=== PATIENT | female | born 1955 ===

== ENCOUNTER 2017-05-14 12:13 | Observation (INO) | payer OTHER, SELFPAY ==
[2017-05-14 13:20] LABS: BASO # 0.1 K/uL (0.0-0.2); EOS # 0.2 K/uL (0.0-0.7); EOS % 1.8 % (0.0-4.0); HEMOGLOBIN 13.3 g/dL (12.0-16.0); LYMPH # 2.7 K/uL (1.0-4.3); LYMPH % 28.2 % (20.0-40.0); MEAN CELL VOLUME 84.8 fl (81.0-99.0); MEAN CORPUSCULAR HEMOGLOBIN 28.1 pg (27.0-31.0); MEAN CORPUSCULAR HGB CONC 33.1 g/dL (33.0-37.0); MONO # 0.7 K/uL (0.0-0.8); MONO % 6.8 % (0.0-10.0); NEUT # 5.9 K/uL (1.8-7.0); NEUT % 62.2 % (50.0-75.0); NRBC % 0.1 % (0.0-0.0); RBC 4.74 Mil/uL (3.80-5.20); RED CELL DISTRIBUTION WIDTH 13.5 % (11.5-14.5); WHITE BLOOD COUNT 9.5 K/uL (4.8-10.8)
[2017-05-14 13:29] LABS: ALB/GLOB RATIO 1.3 (1.0-2.1); ALBUMIN 4.5 g/dL (3.5-5.0); ALT/SGPT 21 U/L (9-52); AST/SGOT 32 U/L (14-36); BLOOD UREA NITROGEN 13 mg/dl (7-17); CALCIUM 8.9 mg/dL (8.4-10.2); GFR AFRICAN-AMERICAN > 60; GFR NON-AFRICAN AMERICAN > 60; LIPASE 151 U/L (23-300); MAGNESIUM 2.1 MG/DL (1.6-2.3)
[2017-05-14 13:40] LABS: B-TYPE NATRIURETIC PEPTIDE 133 pg/ml (0-900)
--- NOTE | 2017-05-14 13:40 | ED PDOC ---
HPI: Chest Pain Time Seen by Provider: 05/14/17 12:31 Chief Complaint (Nursing): Chest Pain History Per: Patient History/Exam Limitations: no limitations Onset/Duration Of Symptoms: Gradual (yesterday) Severity: Mild Front/Back of Body, Lg (Color): 1 - substernal Quality: Dull Associated Symptoms: Nausea, Dyspnea. denies: Diaphoresis, Syncope Modifying Factors: None Exacerbating Factors: None Alleviating Factors: None Additional History Per: Patient Additional Complaint(s): c/o mid chest pain since yesterday with shortness of breath. pt denies cough and fever. 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 [id number] Past Medical History Reviewed: Historical Data, Nursing Documentation, Vital Signs Vital Signs: Last Vital Signs Temp 98 F 05/14/17 12:20 Pulse 60 05/14/17 12:35 Resp 21 05/14/17 12:20 BP 137/64 05/14/17 12:35 Pulse Ox 100 05/14/17 13:42 - Medical History PMH: HTN - Family History Family History: States: Unknown Family Hx - Living Arrangements Living Arrangements: With Family - Social History Current smoker - smoking cessation education provided: No - Home Medications Home Medications: Ambulatory Orders Medication Instructions Recorded Jolon-3 Fatty Acids/Fish Oil 1 cap PO DAILY 05/14/17 [Jolon-3 1,000 mg Softgel] - Allergies Allergies/Adverse Reactions: Allergies Allergy/AdvReac Type Severity Reaction Status Date / Time No Known Allergies Allergy Verified 05/14/17 12:19 ISAAC Risk Score for UA/NSTEMI - ISAAC Risk Score Age > 64: NO 3 or more CAD Risk Factors: NO Known CAD (Stenosis greater than 50%): NO Aspirin use in past 7 days: NO Severe Angina: NO EKG ST changes greater than 0.5mm: NO Positive Cardiac Marker: NO ISAAC Score: 0 Risk %: 5% Wells Criteria for PE - Wells Criteria for Pulmonary Embolism Clinical Signs and Symptoms of DVT: No P.E is #1 Diagnosis, or Equally Likely: No Heart Rate >100: No Immobilization at least 3 days;Surgery previous 4 weeks: No Previous, objectively diagnosed PE or DVT: No Hemoptysis: No Malignancy w/treatment within 6 months, or palliative: No Total Score: 0 Review of Systems ROS Statement: Except As Marked, All Systems Reviewed And Found Negative Constitutional: Negative for: Fever, Chills Cardiovascular: Positive for: Chest Pain. Negative for: Palpitations Respiratory: Negative for: Cough, Shortness of Breath Gastrointestinal: Negative for: Nausea, Vomiting, Abdominal Pain Neurological: Negative for: Weakness, Numbness Physical Exam - Reviewed Nursing Documentation Reviewed: Yes Vital Signs Reviewed: Yes - Physical Exam Appears: Positive for: Well, Uncomfortable Head Exam: Positive for: ATRAUMATIC, NORMAL INSPECTION, NORMOCEPHALIC Eye Exam: Positive for: Normal appearance, EOMI, PERRL Neck: Positive for: Normal, Painless ROM, Supple Cardiovascular/Chest: Positive for: Regular Rate, Rhythm, Chest Non Tender. Negative for: Edema, Gallop Respiratory: Positive for: Normal Breath Sounds. Negative for: Decreased Breath Sounds, Accessory Muscle Use, Crackles, Rales, Rhonchi, Stridor, Wheezing Pulses-Radial (L): 2+ Pulses-Radial (R): 2+ Gastrointestinal/Abdominal: Positive for: Normal Exam, Bowel Sounds, Soft. Negative for: Tenderness Back: Positive for: Normal Inspection. Negative for: L CVA Tenderness, R CVA Tenderness Extremity: Positive for: Normal ROM. 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 Negative for: Motor/Sensory Deficits - Laboratory Results Result Diagrams: 05/14/17 13:05 05/14/17 13:05 - ECG ECG: Positive for: Interpreted By Wa ECG Rhythm: Positive for: Normal QRS, Normal ST Segment, Sinus Rhythm. Negative for: ST/T Changes Interpretation Of Abn EKG: rate of 68, no evidence of ischemia O2 Sat by Pulse Oximetry: 100 Pulse Ox Interpretation: Normal - Radiology X-Ray: Interpreted by Me X-Ray Interpretation: No Acute Disease - Progress ED Course And Treament: no cp now Re-evaluation Time: 13:00 (1) Condition: Improved Disposition - Clinical Impression Clinical Impression: Chest pain - Patient ED Disposition Is Patient to be Admitted: Yes Counseled Patient/Family Regarding: Studies Performed, Diagnosis - Disposition Disposition Time: 13:19 Condition: STABLE - Pt Status Changed To: Hospital Disposition Of: Observation
[2017-05-14 13:50] LABS: PARTIAL THROMBOPLASTIN TIME 31.4 Seconds (25.6-37.1); PROTHROMBIN TIME 11.8 Seconds (9.8-13.1)
[2017-05-14] MEDS ORDERED: Potassium Chloride 20 mEq ER Tab PO ONE ×2 (14:34→15:10)
--- NOTE | 2017-05-14 15:55 | CP.PCM.HP ---
History of Present Illness - History of Present Illness History of Present Illness: 61 yr old F with PMHx including HTN and HLD presented to ED with complaint of chest pain and b/l LE numbness that began at 9am while she was standing folding pants at work. Patient reports the chest pain was in the middle of her chest, "pressure like", 4/10, felt like someone was squeezing her chest and she couldn' t breathe, pain does not radiate. She had associated palpitations, began sweating and had blurry vision at that time. She sat in a chair at work and her symptoms improved mildly, she called and cab and came to the ED. Denies nausea, vomiting, fever, chills, LOC, head trauma, pain or numbness of extremities. Denies any prior episode of chest pain. At baseline she can walk many miles and up and down stairs without any SOB or difficulty. She reports she is in alot of stress at home as she and her daughter have taken out > $7,000 in loans from a friend whom is now constantly asking them to pay back GREGORY. PMD: Dr. 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, lives with daughter/son and 2 grandchildren Medications: Hydrochlorothiazide 25mg PO QD Allergies: NKDA ED Course -VSS : BP 137/64 mmHg, HR 60, RespR 21, Temp 98 F, Pulse Ox 100% -EKG: NSR -CBC: wnl, coags wnl, D-dimer 196, Lipase 151, ProBnp 133 -CMP: K 3.4, rest wnl -CXR: official report pending -my interpretation (no active pulmonary disease, unchanged compared to prior CXR of 07/01/2009) -ED tx: ASA 325mg PO stat Present on Admission - Present on Admission Any Indicators Present on Admission: No History of DVT/PE: No History of Uncontrolled Diabetes: No Urinary Catheter: No Decubitus Ulcer Present: No Review of Systems - Review of Systems All systems: reviewed and no additional remarkable complaints except (for what is mentioned in the HPI) Past Patient History - Past Social History Smoking Status: Never Smoked - CARDIAC Hx Hypertension: Yes - PSYCHIATRIC Hx Substance Use: No - SURGICAL HISTORY Hx Section: Yes - ANESTHESIA Hx Anesthesia: Yes Hx Anesthesia Reactions: No Meds Allergies/Adverse Reactions: Allergies Allergy/AdvReac Type Severity Reaction Status Date / Time No Known Allergies Allergy Verified 05/14/17 12:19 Physical Exam - Constitutional Appears: Non-toxic, No Acute Distress - Head Exam Head Exam: ATRAUMATIC, NORMOCEPHALIC - Eye Exam Eye Exam: EOMI, PERRL - ENT Exam ENT Exam: Mucous Membranes Moist - Neck Exam Neck exam: Positive for: Full Rom. Negative for: Lymphadenopathy - Respiratory Exam Respiratory Exam: Clear to Auscultation Bilateral, NORMAL BREATHING PATTERN - Cardiovascular Exam Cardiovascular Exam: REGULAR RHYTHM, +S1, +S2. absent: JVD - GI/Abdominal Exam GI & Abdominal Exam: Normal Bowel Sounds, Soft (obese). absent: Tenderness - Extremities Exam Extremities exam: Positive for: full ROM (strength 5/5 in bilateral upper and lower extremities), normal capillary refill, pedal pulses present. Negative for : calf tenderness, pedal edema - Back Exam Back exam: absent: CVA tenderness (L), CVA tenderness (R) - Neurological Exam Neurological exam: Alert, CN II-XII Intact, Oriented x3 - Psychiatric Exam Psychiatric exam: Normal Affect, Normal Mood - Skin Skin Exam: Dry, Intact, Normal Color, Warm Results - Vital Signs Recent Vital Signs: Last Vital Signs Temp 98.1 F 05/14/17 15:02 Pulse 79 05/14/17 15:02 Resp 16 05/14/17 15:02 BP 142/86 05/14/17 15:02 Pulse Ox 99 05/14/17 15:02 - Labs Result Diagrams: 05/14/17 13:05 05/14/17 13:05 Assessment & Plan - Assessment and Plan (Free Text) Assessment: 61 yr old F admitted for chest pain with PMH of HTN and HLD, not taking medication. EKG showed NSR, CXR no active disease, troponin negative x 1. Patient hemodynamically stable , will be admitted to telemetry for further management. Chest Pain -acute, stable -EKG: NSR -Troponin negative x 1 -CXR: no active disease (official report pending) -ASA 81mg PO daily -f/u serial troponins -f/u repeat EKG in AM -admit to tele for futher management Hypokalemia -K 3.4 -K-Dur 20 Meq PO daily -f/u CMP HTN -controlled, chronic -continue home med: HCTZ 25mg PO QD -monitor BP -heart healthy diet -f/u CBC HLD -controlled, chronic -continue home med: Lovaza 1gm PO QD -f/u Lipid panel DVT -Lovenox 40mg SC QD -SCD's - Date & Time Date: 05/14/17 Time: 14:35
[2017-05-14] MEDS: Omega-3-Acid Ethyl Esters 1 GM Cap PO SCH (17:06)
--- NOTE | 2017-05-14 18:31 | RAD ---
HISTORY: cp COMPARISON: Chest x-ray performed 07/01/09 TECHNIQUE: Chest, one view. FINDINGS: LUNGS: No focal consolidation. Please note that chest x-ray has limited sensitivity for the detection of pulmonary masses. PLEURA: No significant pleural effusion identified. No definite pneumothorax . CARDIOVASCULAR: Heart size appears within normal limits. OSSEOUS STRUCTURES: Degenerative changes of the spine. VISUALIZED UPPER ABDOMEN: Unremarkable. OTHER FINDINGS: 17 x 27 mm ovoid calcific or ossific density projects over the medial right upper lobe, grossly stable since 2008. IMPRESSION: No acute findings. 17 x 27 mm ovoid calcific or ossific density projects over the medial right upper lobe, grossly stable since 2008. Outpatient CT of the chest may be considered if indicated. Study has been marked for PA review.
[2017-05-15 05:13] VITALS: O2SAT 98
[2017-05-15 06:28] LABS: HEMOGLOBIN 13.4 g/dL (12.0-16.0); MEAN CELL VOLUME 84.8 fl (81.0-99.0); MEAN CORPUSCULAR HEMOGLOBIN 27.9 pg (27.0-31.0); MEAN CORPUSCULAR HGB CONC 32.9 g/dL (33.0-37.0); RBC 4.81 Mil/uL (3.80-5.20); RED CELL DISTRIBUTION WIDTH 13.4 % (11.5-14.5); WHITE BLOOD COUNT 7.4 K/uL (4.8-10.8)
[2017-05-15 06:33] LABS: ALB/GLOB RATIO 1.3 (1.0-2.1); ALT/SGPT 27 U/L (9-52); AST/SGOT 28 U/L (14-36); BLOOD UREA NITROGEN 12 mg/dl (7-17); CALCIUM 8.9 mg/dL (8.4-10.2); GFR AFRICAN-AMERICAN > 60; GFR NON-AFRICAN AMERICAN > 60
[2017-05-15 08:14] VITALS: PULSE 61; RESP 18; TEMP 97.9
--- NOTE | 2017-05-15 08:38 | CP.PCM.DIS ---
Provider - Provider Date of Admission: 05/14/17 13:58 Attending physician: Nata Mendosa MD Primary care physician: Dr. Archer-[facility] Time Spent in preparation of Discharge (in minutes): 30 Diagnosis - Discharge Diagnosis (1) Chest pain Status: Acute Priority: Low Comment: ACS ruled out Hospital Course - Lab Results Lab Results: Most Recent Lab Values WBC 7.4 K/uL (4.8-10.8) 05/15/17 05:00 RBC 4.81 Mil/uL (3.80-5.20) 05/15/17 05:00 Hgb 13.4 g/dL (12.0-16.0) 05/15/17 05:00 Hct 40.8 % (34.0-47.0) 05/15/17 05:00 MCV 84.8 fl (81.0-99.0) 05/15/17 05:00 MCH 27.9 pg (27.0-31.0) 05/15/17 05:00 MCHC 32.9 g/dL (33.0-37.0) L 05/15/17 05:00 RDW 13.4 % (11.5-14.5) 05/15/17 05:00 Plt Count 216 K/uL (130-400) 05/15/17 05:00 MPV 10.0 fl (7.2-11.7) 05/14/17 13:05 Neut % (Auto) 62.2 % (50.0-75.0) 05/14/17 13:05 Lymph % (Auto) 28.2 % (20.0-40.0) 05/14/17 13:05 [place] % (Auto) 6.8 % (0.0-10.0) 05/14/17 13:05 Eos % (Auto) 1.8 % (0.0-4.0) 05/14/17 13:05 Baso % (Auto) 1.0 % (0.0-2.0) 05/14/17 13:05 Neut # 5.9 K/uL (1.8-7.0) 05/14/17 13:05 Lymph # 2.7 K/uL (1.0-4.3) 05/14/17 13:05 [place] # 0.7 K/uL (0.0-0.8) 05/14/17 13:05 Eos # 0.2 K/uL (0.0-0.7) 05/14/17 13:05 Baso # 0.1 K/uL (0.0-0.2) 05/14/17 13:05 PT 11.8 Seconds (9.8-13.1) 05/14/17 13:05 INR 1.0 (0.9-1.2) 05/14/17 13:05 APTT 31.4 Seconds (25.6-37.1) 05/14/17 13:05 D-Dimer, Quantitative 196 ng/mlDDU (0-230) 05/14/17 13:05 Sodium 142 mmol/l (132-148) 05/15/17 05:00 Potassium 4.2 MMOL/L (3.6-5.0) 05/15/17 05:00 Chloride 108 mmol/L (98-107) H 05/15/17 05:00 Carbon Dioxide 25 mmol/L (22-30) 05/15/17 05:00 Anion Gap 13 (10-20) 05/15/17 05:00 BUN 12 mg/dl (7-17) 05/15/17 05:00 Creatinine 0.7 mg/dL (0.7-1.2) 05/15/17 05:00 Est GFR ( Amer) > 60 05/15/17 05:00 Est GFR (Non-Af Amer) > 60 05/15/17 05:00 Random Glucose 103 mg/dL (65-105) 05/15/17 05:00 Calcium 8.9 mg/dL (8.4-10.2) 05/15/17 05:00 Magnesium 2.1 MG/DL (1.6-2.3) 05/14/17 13:05 Total Bilirubin 0.5 mg/dl (0.2-1.3) 05/15/17 05:00 AST 28 U/L (14-36) 05/15/17 05:00 ALT 27 U/L (9-52) 05/15/17 05:00 Alkaline Phosphatase 87 U/L (38-126) 05/15/17 05:00 Troponin I < 0.0120 ng/mL (0.00-0.120) 05/14/17 21:11 NT-Pro-B Natriuret Pep 133 pg/ml (0-900) 05/14/17 13:05 Total Protein 7.1 G/DL (6.3-8.2) 05/15/17 05:00 Albumin 4.0 g/dL (3.5-5.0) 05/15/17 05:00 Globulin 3.1 gm/dL (2.2-3.9) 05/15/17 05:00 Albumin/Globulin Ratio 1.3 (1.0-2.1) 05/15/17 05:00 Lipase 151 U/L (23-300) 05/14/17 13:05 - Hospital Course Hospital Course: 61 yr old F admitted for chest pain, EKG resulted NSR, serial troponins were negative x 2, chest pain resolved, ACS was ruled out. Patient remained stable and was discharged with instructions to take Hydrochlorothiazide 25mg PO QD, resume the rest of your home meds, follow up at [facility] with Dr. Santiago on 05/21/17 9: 15am, follow up with Silviano Holm (dental billing specialist). - Date & Time of H&P Date of H&P: 05/14/17 Time of H&P: 15:22 Discharge Exam - Head Exam Head Exam: ATRAUMATIC, NORMOCEPHALIC - Eye Exam Eye Exam: EOMI - ENT Exam ENT Exam: Mucous Membranes Moist - Neck Exam Neck exam: Full Rom - Respiratory Exam Respiratory Exam: Clear to PA & Lateral, NORMAL BREATHING PATTERN - Cardiovascular Exam Cardiovascular Exam: REGULAR RHYTHM, +S1, +S2 - GI/Abdominal Exam GI & Abdominal Exam: Normal Bowel Sounds, Soft. absent: Tenderness - Extremities Exam Extremities exam: full ROM - Back Exam Back exam: absent: CVA tenderness (L), CVA tenderness (R) - Neurological Exam Neurological exam: Alert, CN II-XII Intact, Oriented x3 - Psychiatric Exam Psychiatric exam: Normal Affect, Normal Mood - Skin Skin Exam: Dry, Intact, Warm Discharge Plan - Discharge Medications Prescriptions: hydroCHLOROthiazide [Hydrodiuril] 25 mg PO DAILY #30 tab - Follow Up Plan Condition: STABLE Disposition: HOME/ ROUTINE Instructions: Noncardiac Chest Pain (DC) Additional Instructions: -Take Hydrochlorothiazide 25mg PO QD -Resume the rest of your home meds -Follow up at [facility] with Dr. Santiago on 05/21/17 9:15am Referrals: Tra Santiago MD [Resident] -
[2017-05-15] MEDS: Omega-3-Acid Ethyl Esters 1 GM Cap PO SCH (08:41)
[2017-05-15] MEDS ORDERED: OMEGA PO SCH (09:00)
[2017-05-15] MEDS ORDERED: Potassium Chloride 20 mEq ER Tab PO SCH (09:00)
[2017-05-15] MEDS ORDERED: Enoxaparin 40 mg Syringe SC SCH (09:00)
[2017-05-15] MEDS ORDERED: FISH OIL PO SCH (09:00)
[2017-05-15] MEDS ORDERED: FATTY ACIDS PO SCH (09:00)
--- NOTE | 2017-05-15 10:17 | CARD ---
APPROVED REPORT EKG Measurement Heart [id number] FL 134P35 [id number] <Conclusion> Normal sinus rhythm Normal ECG
[2017-05-15 11:27] VITALS: BP 132/86
== END 2017-05-15 12:20 | disposition home or self-care (01) ==
LOC: H.ER 12:13 → H.ERHOLD 13:58 → H.TEL 16:03
PROVIDERS: ADMIT Family Medicine Geriatric Medicine; ATTEND Family Medicine Geriatric Medicine
DX: R07.89 Other chest pain (principal); E87.6 Hypokalemia; I10 Essential (primary) hypertension; E78.5 Hyperlipidemia, unspecified; Z91.14 Patient's other noncompliance with medication regimen

== ENCOUNTER 2017-06-04 09:43 | Emergency (ER) | payer SELFPAY ==
[2017-06-04 09:57] VITALS: BMI 21.0
--- NOTE | 2017-06-04 10:16 | CT ---
PROCEDURE: CT HEAD WITHOUT CONTRAST. HISTORY: code stroke AMS COMPARISON: None available. TECHNIQUE: Axial computed tomography images were obtained through the head/brain without intravenous contrast. Radiation dose: Total exam DLP = 1073.37 mGy-cm. This CT exam was performed using one or more of the following dose reduction techniques: Automated exposure control, adjustment of the mA and/or kV according to patient size, and/or use of iterative reconstruction technique. FINDINGS: HEMORRHAGE: No intracranial hemorrhage. BRAIN: No mass effect or edema. No atrophy or chronic microvascular ischemic changes. VENTRICLES: Unremarkable. No hydrocephalus. CALVARIUM: Unremarkable. PARANASAL SINUSES: Unremarkable as visualized. No significant inflammatory changes. MASTOID AIR CELLS: Unremarkable as visualized. No inflammatory changes. OTHER FINDINGS: None. IMPRESSION: No evidence of acute intracranial hemorrhage mass effect or midline shift. Acute ischemic changes may not be seen in the CT. Follow-up reassessment by CT or MRI may be obtained if clinically warranted.
[2017-06-04 10:23] LABS: BASO # 0.1 K/uL (0.0-0.2); BASO % 0.7 % (0.0-2.0); EOS # 0.1 K/uL (0.0-0.7); EOS % 1.3 % (0.0-4.0); HEMOGLOBIN 13.9 g/dL (12.0-16.0); LYMPH # 2.6 K/uL (1.0-4.3); MEAN CELL VOLUME 83.8 fl (81.0-99.0); MEAN CORPUSCULAR HEMOGLOBIN 27.7 pg (27.0-31.0); MEAN PLATELET VOLUME 9.9 fl (7.2-11.7); MONO # 0.6 K/uL (0.0-0.8); MONO % 7.7 % (0.0-10.0); NEUT # 4.8 K/uL (1.8-7.0); NEUT % 58.3 % (50.0-75.0); NRBC % 0.1 % (0.0-0.0); RBC 5.02 Mil/uL (3.80-5.20); RED CELL DISTRIBUTION WIDTH 13.9 % (11.5-14.5); WHITE BLOOD COUNT 8.3 K/uL (4.8-10.8)
[2017-06-04 10:33] LABS: ALB/GLOB RATIO 1.3 (1.0-2.1); ALBUMIN 4.5 g/dL (3.5-5.0); ALT/SGPT 31 U/L (9-52); AST/SGOT 30 U/L (14-36); BLOOD UREA NITROGEN 13 mg/dl (7-17); CALCIUM 9.6 mg/dL (8.4-10.2); GFR AFRICAN-AMERICAN > 60; GFR NON-AFRICAN AMERICAN > 60; HDL CHOLESTEROL 62 MG/DL (30-70)
[2017-06-04 10:43] LABS: LDL CHOLESTEROL 123 mg/dL (0-129)
[2017-06-04 10:46] LABS: INR 1.2 (0.9-1.2); PROTHROMBIN TIME 11.9 Seconds (9.8-13.1)
[2017-06-04 10:48] VITALS: O2SAT 98
[2017-06-04] MEDS ORDERED: Potassium Chloride 20 mEq ER Tab PO STA (10:54)
--- NOTE | 2017-06-04 12:39 | RAD ---
HISTORY: Shortness of breath. Portable study 10:21. COMPARISON: 05/14/2017. FINDINGS: LUNGS: No active pulmonary disease. PLEURA: No significant pleural effusion identified, no pneumothorax apparent. CARDIOVASCULAR: No radiographic findings to suggest acute or significant cardiovascular disease. OSSEOUS STRUCTURES: No significant abnormalities. VISUALIZED UPPER ABDOMEN: Normal. OTHER FINDINGS: None. IMPRESSION: No active disease. No significant interval change compared to the prior examination(s). Concordant results with the preliminary interpretation rendered by the emergency department physician procedure.
--- NOTE | 2017-06-04 16:05 | ED PDOC ---
HPI: Neurologic - General Time Seen by Provider: 06/04/17 09:51 Chief Complaint (Nursing): Anxiety Chief Complaint (Provider): Anxiety Source: patient Exam Limitations: no limitations - History of Present Illness Timing/Duration: 4-6 hours (morning prior to arrival ) Allergies/Adverse Reactions: Allergies No Known Allergies Allergy (Verified 06/04/17 09:57) Home Medications: Ambulatory Orders [place]-3 Fatty Acids/Fish Oil [[place]-3 1,000 mg Softgel] 1 cap PO DAILY 05/14/17 hydroCHLOROthiazide [Hydrodiuril] 25 mg PO DAILY #30 tab 05/15/17 Additional Complaint(s): Hillary Rahman is a 61 year old female with a past medical history of hypertension and anxiety presenting to the ED for an evaluation of feeling anxious and numbness noted to bilateral hands, legs, and mouth beginning this morning prior to arrival. The patient reports she felt her blood pressure to be elevated so she took a hydrochlorothiazide. Her doctor told her to stop taking her blood pressure medication because she no longer needs it. She also reports taking an Aspirin every day. She denies any history of diabetes. PMD: None Provided Past Medical History Reviewed: Historical Data, Nursing Documentation, Vital Signs Vital Signs: Last Vital Signs Temp Pulse 67 06/04/17 12:19 Resp 18 06/04/17 12:19 BP 124/69 06/04/17 12:19 Pulse Ox 98 06/04/17 12:19 - Medical History PMH: HTN Denies: HIV, Chronic Kidney Disease - Surgical History Surgical History: No Surg Hx - Family History Family History: States: Unknown Family Hx - Social History Current smoker - smoking cessation education provided: No Ex-Smoker (has not smoked in the last 12 months): No - Home Medications Home Medications: Ambulatory Orders Medication Instructions Recorded [place]-3 Fatty Acids/Fish Oil 1 cap PO DAILY 05/14/17 [[place]-3 1,000 mg Softgel] hydroCHLOROthiazide [Hydrodiuril] 25 mg PO DAILY #30 tab 05/15/17 - Allergies Allergies/Adverse Reactions: Allergies Allergy/AdvReac Type Severity Reaction Status Date / Time No Known Allergies Allergy Verified 06/04/17 09:57 Review of Systems ROS Statement: Except As Marked, All Systems Reviewed And Found Negative Neurological: Positive for: Numbness, Dizziness Psych: Positive for: Anxiety Physical Exam - Reviewed Nursing Documentation Reviewed: Yes Vital Signs Reviewed: Yes - Physical Exam Appears: Positive for: Well (anxious and tearful ), Non-toxic, No Acute Distress Head Exam: Positive for: ATRAUMATIC, NORMAL INSPECTION, NORMOCEPHALIC Skin: Positive for: Normal Color, Warm, DRY Eye Exam: Positive for: EOMI, Normal appearance, PERRL ENT: Positive for: Normal ENT Inspection Neck: Positive for: Normal, Painless ROM Cardiovascular/Chest: Positive for: Regular Rate, Rhythm Respiratory: Positive for: CNT, Normal Breath Sounds Gastrointestinal/Abdominal: Positive for: Normal Exam, Bowel Sounds, Soft Back: Positive for: Normal Inspection Extremity: Positive for: Normal ROM Neurologic/Psych: Positive for: Alert, chief nurse executive II-XII (intact ), Oriented, Other (5/ 5 strength bilaterally ). Negative for: Motor/Sensory Deficits, Facial Droop ( no facial weakness) - Laboratory Results Result Diagrams: 06/04/17 10:18 06/04/17 17:00 - ECG ECG Rhythm: Positive for: Sinus Bradycardia. Negative for: ST/T Changes Rate: 58 O2 Sat by Pulse Oximetry: 98 (RA) Pulse Ox Interpretation: Normal Medical Decision Making Medical Decision Makin:51 Impression: Anxiety and numbness Plan: * Type and screen * ED EKG * Labs * Blood Work * Glucose, Blood, POC * Chest X-ray * CT head * Ativan 1 mg * K-Dur 20 mEq ER Tab PO * Reevaluation Triage nurse called code stroke according to protocol however unlikely to be acute cerebral ischemia due to clinical history and exam. Relieved with 1 mg Ativan ordered for anxiety. Blood work showed mild hypokalemia which was replaced. Chest X-Ray: FINDINGS: LUNGS: No active pulmonary disease. PLEURA: No significant pleural effusion identified, no pneumothorax apparent. CARDIOVASCULAR: No radiographic findings to suggest acute or significant cardiovascular disease. OSSEOUS STRUCTURES: No significant abnormalities. VISUALIZED UPPER ABDOMEN: Normal. OTHER FINDINGS: None. IMPRESSION: No active disease. No significant interval change compared to the prior examination(s). Head CT FINDINGS: HEMORRHAGE: No intracranial hemorrhage. BRAIN: No mass effect or edema. No atrophy or chronic microvascular ischemic changes. VENTRICLES: Unremarkable. No hydrocephalus. CALVARIUM: Unremarkable. PARANASAL SINUSES: Unremarkable as visualized. No significant inflammatory changes. MASTOID AIR CELLS: Unremarkable as visualized. No inflammatory changes. OTHER FINDINGS: None. IMPRESSION: No evidence of acute intracranial hemorrhage mass effect or midline shift. Acute ischemic changes may not be seen in the CT. Follow-up reassessment by CT or MRI may be obtained if clinically warranted. trop repeated and neg x2 potassium replaced, repeated and normal Monitored in ED 6+ hrs without return of symptoms. Given symptoms bilateral, patient believes "related to stress", recent admission for chest pain possibly related to anxiety, improvement / resolution w ativan- unlikely to be acute cerebral ischemia. DC home followup clinic for BP management. Continue ASA. Scribe Attestation: Documented by Ashlyn Brown, acting as a scribe for Omer Mendez DO. Provider Scribe Attestation: All medical record entries made by the Scribe were at my direction and personally dictated by me. I have reviewed the chart and agree that the record accurately reflects my personal performance of the history, physical exam, medical decision making, and the department course for this patient. I have also personally directed, reviewed, and agree with the discharge instructions and disposition. Disposition - Clinical Impression Clinical Impression: Anxiety - Patient ED Disposition Is Patient to be Admitted: No Counseled Patient/Family Regarding: Studies Performed, Diagnosis, Need For Followup - Disposition Referrals: [facility] [Outside] Disposition: Routine/Home Disposition Time: 13:00 Condition: STABLE Additional Instructions: Continue any medications as prior prescribed. Return to ER for any return of, or new, symptoms. Instructions: Paresthesia (ED), Anxiety (ED), Panic Attack (ED) Forms: [email or web address] (Occitan) Print Language: KAZAKH
--- NOTE | 2017-06-04 16:35 | CARD ---
APPROVED REPORT EKG Measurement Heart [id number] FL 126P35 [id number] <Conclusion> Sinus bradycardia Otherwise normal ECG
[2017-06-04 18:32] VITALS: BP 126/78; RESP 19; TEMP 97.6
[2017-06-05 13:39] VITALS: PULSE 58
== END 2017-06-04 18:32 | disposition home or self-care (01) ==
LOC: H.ER 09:43
DX: F41.9 Anxiety disorder, unspecified (principal); I10 Essential (primary) hypertension

== ENCOUNTER 2017-08-09 09:40 | Emergency (ER) | payer SELFPAY ==
[2017-08-09 09:44] VITALS: BMI 34.0
[2017-08-09 09:45] VITALS: BP 136/65; PULSE 68; RESP 18; TEMP 98.5; O2SAT 98
--- NOTE | 2017-08-09 10:08 | ED PDOC ---
Upper Extremity Pain/Injury Time Seen by Provider: 08/09/17 10:07 Chief Complaint (Nursing): Upper Extremity Problem/Injury Chief Complaint (Provider): right arm pain History Per: Patient Additional Complaint(s): [id number] female presents to emergency Department with pain to right shoulder that radiates down the right arm times one week. Patient does not recall any injury or trauma. She took Aleve the other day which did help somewhat with pain. No associated chest pain, shortness of breath or dyspnea on exertion. His current pain is 6 out of 10 and patient did not take anything for pain today. PMD: [facility] Past Medical History Reviewed: Historical Data, Nursing Documentation, Vital Signs Vital Signs: Last Vital Signs Temp 98.5 F 08/09/17 09:44 Pulse 68 08/09/17 09:44 Resp 18 08/09/17 09:44 BP 136/65 08/09/17 09:44 Pulse Ox 98 08/09/17 09:44 - Medical History PMH: HTN, Hypercholesterolemia - Surgical History Surgical History: (x 1) - Family History Family History: States: No Known Family Hx - Living Arrangements Living Arrangements: With Family - Social History Current smoker - smoking cessation education provided: No Alcohol: None Drugs: Denies - Home Medications Home Medications: Ambulatory Orders Medication Instructions Recorded Jerusalem-3 Fatty Acids/Fish Oil 1 cap PO DAILY 05/14/17 [Jerusalem-3 1,000 mg Softgel] hydroCHLOROthiazide [Hydrodiuril] 25 mg PO DAILY #30 tab 05/15/17 Cyclobenzaprine [Cyclobenzaprine 10 mg PO TID PRN #20 tab 08/09/17 HCl] Naproxen [Naprosyn] 500 mg PO BID #20 tab 08/09/17 - Allergies Allergies/Adverse Reactions: Allergies Allergy/AdvReac Type Severity Reaction Status Date / Time No Known Allergies Allergy Verified 08/09/17 10:03 Review of Systems ROS Statement: Except As Marked, All Systems Reviewed And Found Negative Constitutional: Negative for: Fever Cardiovascular: Negative for: Chest Pain Musculoskeletal: Positive for: Arm Pain (right shoulder pain for 1 week) Physical Exam - Reviewed Nursing Documentation Reviewed: Yes Vital Signs Reviewed: Yes - Physical Exam Appears: Positive for: Well, Non-toxic, No Acute Distress Skin: Negative for: Rash Eye Exam: Positive for: Normal appearance Neck: Positive for: Painless ROM. Negative for: Pain On Movement Of Neck Cardiovascular/Chest: Positive for: Regular Rate, Rhythm Respiratory: Positive for: Normal Breath Sounds Back: Positive for: Normal Inspection Extremity: Positive for: Other (diffuse tenderness to anterior right shoulder, full range of motion with pain, mild tenderness to right olecranon region, strong right handgrip, normal distal sensation, no soft tissue swelling or ecchymosis noted to right arm) Neurologic/Psych: Positive for: Alert, Oriented - ECG O2 Sat by Pulse Oximetry: 98 Pulse Ox Interpretation: Normal - Other Rad Right shoulder, humerus and elbow x-ray X-Ray: Interpreted by Me, Viewed By Me X-Ray Interpretation: no fx, no dis Medical Decision Making Medical Decision Makin-year-old female with right arm pain for one week, starts in shoulder and radiates down Plan: IM toradol PO tylenol X-ray right shoulder, humerus and left elbow Patient is aware of x-ray results, all questions answered. Sling applied to right arm. Rx naprosyn and flexeril given. Patient was instructed to follow up with clinic in 2-3 days. Procedures - Splinting Location: right arm Pre-Made Type: sling Pre-Proc Neuro Vasc Exam: normal Post-Proc Neuro Vasc Exam: normal Disposition - Clinical Impression Clinical Impression: Tendinitis of shoulder - Patient ED Disposition Is Patient to be Admitted: No Counseled Patient/Family Regarding: Studies Performed, Diagnosis, Need For Followup, Rx Given - Disposition Referrals: [facility] [Outside] Disposition: Routine/Home Disposition Time: 11:44 Condition: IMPROVED Additional Instructions: Take rx meds as directed. Rest and avoid heavy lifting. Follow up with clinic in 2-3 days. Prescriptions: Cyclobenzaprine [Cyclobenzaprine HCl] 10 mg PO TID PRN #20 tab PRN Reason: Muscle Spasm Naproxen [Naprosyn] 500 mg PO BID #20 tab Instructions: Tendinitis (ED), Shoulder Sprain (ED) Forms: [employer] (Belizean) Print Language: KAZAKH
--- NOTE | 2017-08-09 14:33 | RAD ---
PROCEDURE: Radiographs of the right humerus. HISTORY: Right upper extremity Pain. No history of recent/ related trauma provided COMPARISON: None. FINDINGS: BONES: Normal. No fracture or focal lesion. SOFT TISSUES: Normal. OTHER FINDINGS: None. IMPRESSION: No acute findings related to/accounting for the clinical Concordant results with the preliminary interpretation rendered by the emergency department physician procedure.
--- NOTE | 2017-08-09 14:34 | RAD ---
PROCEDURE: Radiographs of the Right Shoulder HISTORY: Right upper extremity Pain. No history of recent/ related trauma provided COMPARISON: No prior. FINDINGS: BONES: Normal. No fracture. JOINTS: Preserved glenohumeral relationship, acromioclavicular degenerative change: Mild SOFT TISSUES: Normal. OTHER FINDINGS: None. IMPRESSION: No acute findings related to/accounting for the clinical presentation. Concordant results with the preliminary interpretation rendered by the emergency department physician procedure.
--- NOTE | 2017-08-09 14:34 | RAD ---
PROCEDURE: Radiographs of the right elbow. HISTORY: Pain. No history of recent/ related trauma provided COMPARISON: August 09, 2017. FINDINGS: BONES: Normal. No fracture. JOINTS: Normal. No osteoarthritis. SOFT TISSUES: Normal. JOINT EFFUSION: None. OTHER FINDINGS: None. IMPRESSION: No acute findings related to/accounting for the clinical presentation. Concordant results with the preliminary interpretation rendered by the emergency department physician procedure.
== END 2017-08-09 12:00 | disposition home or self-care (01) ==
LOC: H.ER 09:40
DX: M75.81 Other shoulder lesions, right shoulder (principal)
CPT/HCPCS: 73030; 73060; 73080; 96372; 99283; J1885